=== PATIENT | male | born 1955 | race Caucasian/White ===

== ENCOUNTER 2017-06-18 21:40 | Emergency (ER) | payer BC ==
[~2017-06-18] VITALS: Ht 172.7 cm; Wt 93.0 kg
[~2017-06-18 21:40] MED LIST: AMLODIPINE BESYL5 MG PO; LISINOPRIL40 MG PO
[2017-06-18] MEDS ORDERED: ACETAMINOPHEN500 MG PO (21:52)
[2017-06-18] MEDS ORDERED: AMOXICILLIN500 MG PO (22:00)
== END 2017-06-18 22:10 | disposition home or self-care (01) ==
LOC: ED 21:40
DX: H66.91 Otitis media, unspecified, right ear (principal); H72.91 Unspecified perforation of tympanic membrane, right ear; I10 Essential (primary) hypertension; Z79.899 Other long term (current) drug therapy
CPT/HCPCS: 99283

== ENCOUNTER 2020-04-20 06:30 | Day surgery (SDC) | payer MEDICARE ==
[~2020-04-20] VITALS: Ht 172.7 cm; Wt 84.0 kg
[~2020-04-20 06:30] MED LIST changes: +ACETAMINOPHEN500 MG PO; +AMOXICILLIN500 MG PO
--- NOTE | 2020-04-20 08:12 | NUR ---
04/20/20 0812 Lindsay Dick 0807 PATIENT ARRIVES TO PACU RESTING WITH EYES CLOSED. AWAKENS WITH VERBAL STIMULI. RESP EVEN AND UNLABORED, OXYGEN OFF. ROOM AIR SATS >93%.
--- NOTE | 2020-04-20 12:15 | OR ---
[facility] [address] [place], [place] [address] Signed DATE OF OPERATION: 04/20/2020 SURGEON: Osmel Yee MD PREOPERATIVE DIAGNOSES: Family history of colon cancer (mother), history of tubular adenoma 2017, otherwise asymptomatic. POSTOPERATIVE DIAGNOSES: 1. Sigmoid diverticulosis. 2. Polyps x3 (right colon, transverse and left colon). PROCEDURE: Total colonoscopy to cecum with cold snare polypectomy x1 and cold morcellation polypectomy x2. ANESTHESIA: Intravenous sedation, fentanyl 150 mcg and Versed 7 mg. INDICATION: This 64-year-old white man is a former patient of Dr. Palacios. The patient does not have a current primary care provider. He is known to me from the past having undergone colonoscopy in 2017, at which time he was found to have a tubular adenoma, which was resected. He is currently asymptomatic. He has family history of colon cancer in his late mother. He is admitted to undergo surveillance colonoscopy, understand the risks of bleeding, infection, perforation. FINDINGS: The prep was good. Complete colonoscopy was undertaken of the cecum. Extensive diverticular changes were noted of the sigmoid and left colon. There were three polyps, all excised completely. DESCRIPTION OF PROCEDURE: The patient was brought to the endoscopy suite and placed in lateral decubitus position, given intravenous sedation to the point of slurred speech and nystagmus with full cardiopulmonary monitoring. Digital rectal examination was normal. The Olympus video colonoscope was passed in the rectum and manipulated throughout the colon noting diverticular change of the sigmoid. The scope was advanced to the transverse colon where an obvious sessile polyp was noted. It was less than a cm in Electronically Signed By: OSMEL YEE MD 04/20/20 1215 PATIENT NAME: SUMA CARDENAS OPERATIVE REPORT DATE OF : 51 REPORT #: [id number] PHYSICIAN: OSMEL YEE MD PCP: NO PRIMARY CARE PHYSICIAN REPORT IS CONFIDENTIAL AND NOT TO BE RELEASED WITHOUT AUTHORIZATION [facility] [address] [place], [place] [address] Signed size, however. It was excised with cold snare technique and passed for pathology. The scope was advanced ultimately to the cecum, which appeared normal. Irrigation was undertaken as needed. Ileocecal valve was identified as normal. Scope was withdrawn in the mid ascending colon was a small sessile polyp excised with cold morcellation technique. Further withdrawal of scope showed the previous excision site. Further withdrawal to the left colon showed a small polyp, which was excised with cold morcellation technique as well. Further withdrawal allowed for retroflexed view, which was normal. Scope was removed and the patient was taken to the recovery room in good condition. CONCLUDING DIAGNOSIS: 1. Polyps x3, all excised. 2. Diverticulosis. PLAN: Recommend high-fiber diet. Recommend a repeat colonoscopy in 3-5 years sooner if clinically indicated. He is to establish with a primary care provider . MD LIANNE Goodman/DAVID /[id number] Copies: ~ Electronically Signed By: OSMEL YEE MD 04/20/20 1215 PATIENT NAME: SUMA CARDENAS [place] OPERATIVE REPORT DATE OF : 51 REPORT #: [id number] PHYSICIAN: OSMEL YEE MD PCP: NO PRIMARY CARE PHYSICIAN REPORT IS CONFIDENTIAL AND NOT TO BE RELEASED WITHOUT AUTHORIZATION
--- NOTE | 2020-04-23 14:03 | PATH ---
[facility] [address] [place], [place] [address] Signed SPECIMEN(S): A TRANSVERSE POLYP SPECIMEN(S): B ASCENDING POLYP SPECIMEN(S): C DESCENDING POLYP SPECIMEN SOURCE: A. TRANSVERSE POLYP B. ASCENDING POLYP C. DESCENDING POLYP CLINICAL HISTORY: Colonoscopy. History of polyps, tubular adenoma. Postop: Diverticulosis, colon polyps x 3. MICROSCOPIC DESCRIPTION: Histologic sections of all submitted blocks are examined by light microscopy. These findings, together with the gross examination, support the pathologic diagnosis. FINAL PATHOLOGIC DIAGNOSIS: A. Transverse polyp, biopsy: - Tubular adenoma (one fragment). B. Ascending polyp, biopsy: - Tubular adenoma (one fragment). C. Descending polyp, biopsy: - Features suggestive of tubular adenoma (one fragment). JVR:cml:[id number] GROSS DESCRIPTION: Three specimens are received in three containers, labeled "DR." A. The specimen, labeled "DR," and designated on the requisition "transverse colon polypectomy," is received in formalin and consists of one piece of yellow-roman tissue (0.5 x 0.3 x 0.3 cm). The specimen is submitted entirely in cassette (A1). B. The specimen, labeled "DR," and designated on the requisition "ascending colon polypectomy," is received in formalin and consists of two fragments of pink-roman tissue (0.4 x 0.2 x 0.1 cm in aggregate). The specimen is submitted entirely in cassette (B1). C. The specimen, labeled "DR," and designated on the requisition "descending colon polypectomy," is received in formalin and consists of three fragments of pink-roman tissue (0.5 x 0.2 x 0.2 cm in aggregate). The specimen is submitted entirely in cassette (C1). PATIENT NAME: SUMA CARDENAS PATHOLOGY DATE OF : 51 REPORT #: [id number] PHYSICIAN: ROSA PATHOLOGY PCP: NO PRIMARY CARE PHYSICIAN REPORT IS CONFIDENTIAL AND NOT TO BE RELEASED WITHOUT AUTHORIZATION [facility] [address] [place], [place] [address] Signed AC (under the direct supervision of a pathologist) The Gross Description was prepared using a voice recognition system. The report was reviewed for accuracy; however, sound-alike word errors, addition and/or deletions may occur. If there is any question about this report, please contact Client Services. PERFORMING LABORATORY: The technical component was performed by [facility], [address] [place] [address] (Bolt Sawyer: Ashanti Palomares MD; CLIA# [id number]). Professional interpretation was [place] [address] (Bolt Sawyer: Seth Dao M.D.). Diagnostician: Seth Dao MD Pathologist Electronically Signed 04/23/2020 Copies: ~ PATIENT NAME: SUMA CARDENAS [place] PATHOLOGY DATE OF : 51 REPORT #: [id number] PHYSICIAN: ROSA ADAME PCP: NO PRIMARY CARE PHYSICIAN REPORT IS CONFIDENTIAL AND NOT TO BE RELEASED WITHOUT AUTHORIZATION
== END 2020-04-20 08:40 | disposition home or self-care (01) ==
LOC: OPS 06:30 → DS 06:30 → OPS 06:45 → DS 09:30
PROVIDERS: ATTEND Surgery
PROC: 0DBL8ZZ Excision of Transverse Colon, Via Natural or Artificial Opening Endoscopic (ICD-10-PCS; 2020-04-20)
PROC: 0DBM8ZZ Excision of Descending Colon, Via Natural or Artificial Opening Endoscopic (ICD-10-PCS; 2020-04-20)
PROC: 0DBK8ZZ Excision of Ascending Colon, Via Natural or Artificial Opening Endoscopic (ICD-10-PCS; principal; 2020-04-20 06:45)
DX: Z12.11 Encounter for screening for malignant neoplasm of colon (principal); D12.3 Benign neoplasm of transverse colon; D12.2 Benign neoplasm of ascending colon; K57.30 Diverticulosis of large intestine without perforation or abscess without bleeding; I10 Essential (primary) hypertension; J45.909 Unspecified asthma, uncomplicated; Z80.0 Family history of malignant neoplasm of digestive organs; Z86.010 Personal history of colon polyps
CPT/HCPCS: 99153; G0500; J2250; J3010; J7121

== ENCOUNTER 2023-01-08 11:39 | Day surgery (SDC) | payer MEDICARE ==
[~2023-01-08] VITALS: Ht 172.7 cm; Wt 75.0 kg
[~2023-01-08 11:39] MED LIST changes: +ALDACTONE50 MG PO; +CITRACAL + D M1 EACH PO; +FOLIC ACID0.4 MG PO; +K-TAB ER20 MEQ PO; +LASIX20 MG PO; +MAGNESIUM100 MG PO
[2023-01-08 12:12] VITALS: BP 148/71
--- NOTE | 2023-01-08 14:54 | NUR ---
01/08/23 1454 Kate Flanagan PT TO PACU AWAKE AND TALKING DENIES PAIN OR NAUSEA. PT MAINTAINS SATS ABOVE 95% ON RA.
[2023-01-08 15:09] VITALS: BP 149/84
--- NOTE | 2023-01-08 18:01 | OR ---
[facility] [address] [place], [place] [address] Signed DATE OF OPERATION: 01/08/2023 SURGEON: Osmel Yee MD PREOPERATIVE DIAGNOSES: 1. Family history of colon cancer (mother). 2. History of tubular adenomas x4 in 2019. 3. 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 POSTOPERATIVE DIAGNOSES: Extensive sigmoid and left-sided diverticulosis. No evidence of recurrent polyps or cancer. PROCEDURE: Total colonoscopy to cecum. ANESTHESIA: Intravenous sedation; fentanyl 150 mcg and Versed 5 mg. INDICATION: This 67-year-old white man is a patient of JAMES Rivera. He underwent colonoscopy in 2019 where he was found to have four tubular adenomas. He has no symptoms of bleeding, diarrhea, or constipation. He additionally has family history of colon cancer in his mother. He additionally has cirrhosis of the liver thought likely related to prior alcohol abuse. No longer an issue as regards to alcohol dependency. He is admitted at this time for surveillance colonoscopy. He understands the risk of bleeding, infection, and perforation. FINDINGS: The prep was good. Complete colonoscopy was undertaken to the cecum with full intubation of the cecum. There was evidence of diverticular change of the sigmoid and left colon, but there was no sign of polyp or recurrent polyp. He had no evidence of portal hypertension (rectal varices). DESCRIPTION OF PROCEDURE: The patient was brought to the endoscopy suite and placed in the lateral decubitus position, given intravenous sedation to the point of slurred speech and nystagmus. Digital rectal examination was normal. An Olympus video colonoscope was passed in the rectum and manipulated throughout the Electronically Signed By: OSMEL YEE MD 01/08/23 180 PATIENT NAME: SUMA CARDENAS OPERATIVE REPORT DATE OF : 51 REPORT #: [id number] PHYSICIAN: OSMEL YEE MD PCP: MIGUEL ROSAS REPORT IS CONFIDENTIAL AND NOT TO BE RELEASED WITHOUT AUTHORIZATION [facility] [address] [place], [place] [address] Signed colon ultimately intubating the cecum itself. The ileocecal valve and appendiceal orifice were normal. The scope was withdrawn from that point. Examination throughout showed no sign of abnormality until the left colon and sigmoid where diverticulosis was once again noted. Retroflexed view of the rectum showed no evidence of varices. Scope was straightened, withdrawn and removed. The patient was taken to the recovery room in good condition. CONCLUDING DIAGNOSIS: Extensive diverticulosis. No evidence of recurrent polyp. PLAN: Recommend repeat colonoscopy in 5 years on the basis of his family history of colon cancer in his mother. He will return to the ongoing care of JAMES Rivera as well. MD LIANNE Goodman/DAVID /[id number] cc: JAMES Rivera Copies: ~ Electronically Signed By: OSMEL YEE MD 01/08/23 1801 PATIENT NAME: SUMA CARDENAS ETOILE OPERATIVE REPORT DATE OF : 51 REPORT #: [id number] PHYSICIAN: OSMEL YEE MD PCP: MIGUEL ROSAS REPORT IS CONFIDENTIAL AND NOT TO BE RELEASED WITHOUT AUTHORIZATION
== END 2023-01-08 15:20 | disposition home or self-care (01) ==
LOC: OPS 11:39 → DS 11:44 → OPS 13:00 → DS 13:00 → OPS 15:20
PROVIDERS: ATTEND Surgery
PROC: 0DJD8ZZ Inspection of Lower Intestinal Tract, Via Natural or Artificial Opening Endoscopic (ICD-10-PCS; principal; 2023-01-08 13:00)
DX: Z12.11 Encounter for screening for malignant neoplasm of colon (principal); K57.30 Diverticulosis of large intestine without perforation or abscess without bleeding; Z86.010 Personal history of colon polyps; Z80.0 Family history of malignant neoplasm of digestive organs; K74.60 Unspecified cirrhosis of liver; I10 Essential (primary) hypertension; J45.909 Unspecified asthma, uncomplicated; Z79.899 Other long term (current) drug therapy
CPT/HCPCS: 99153; G0500; J2250; J3010; J7121

== ENCOUNTER 2023-06-06 15:13 | Emergency (ER) | payer MEDICARE ==
[~2023-06-06] VITALS: Ht 172.7 cm; Wt 75.0 kg
[2023-06-06] MEDS ORDERED: OMEPRAZOLE20 MG PO (15:31)
[2023-06-06 17:02] VITALS: BP 124/71
== END 2023-06-06 17:04 | disposition home or self-care (01) ==
LOC: ED 15:13
DX: S01.01XA Laceration without foreign body of scalp, initial encounter (principal); I10 Essential (primary) hypertension; W06.XXXA Fall from bed, initial encounter; Z87.891 Personal history of nicotine dependence; Z79.899 Other long term (current) drug therapy; Z23 Encounter for immunization
CPT/HCPCS: 90471; 90715; 99282